=== PATIENT | female | born 1970 ===

== ENCOUNTER 2019-03-24 12:55 | Outpatient (REF) | payer MEDICAID, SELFPAY ==
[2019-03-24 13:28] LABS: Anion Gap 6.1 mmol/L (3-11); BUN 11 mg/dL (7-18); CO2 28.9 mmol/L (21.0-32.0); CREATININE 0.57 mg/dL (0.55-1.02); Calcium 8.5 mg/dL (8.5-10.1); Calculated LDL 104 mg/dL; Chloride 104 mmol/L (98-107); Cholesterol 162 mg/dL (50-200); Glucose 100 mg/dL (70-100); HDL Cholesterol 44 mg/dL (40-60); Potassium 3.9 mmol/L (3.5-5.1); Sodium 139 mmol/L (136-145); Triglyceride 74 mg/dL (30-150)
== END 2019-03-24 13:15 ==
LOC: NCHCN 12:55
PROVIDERS: PCP Nurse Practitioner Family; Visit Provider Nurse Practitioner Family
DX: I10 Essential (primary) hypertension (principal)
CPT/HCPCS: 80048; 80061

== ENCOUNTER 2019-04-18 17:29 | Emergency (ER) | payer OTHER, SELFPAY ==
[2019-04-18 17:20] VITALS: BP 171/51; PULSE 103; RESP 18; TEMP 36.6; O2SAT 99
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
--- NOTE | 2019-04-18 18:30 | DI.RAD_ITS ---
EXAM: XR HAND RT COMPLETE CLINICAL HISTORY: fall, proximal palmar pain. TECHNIQUE: 2D digital imaging was performed. COMPARISON: No exams were available for comparison FINDINGS: BONES: No acute fracture is present. No bony destructive lesion is seen. JOINTS: No dislocation present. SOFT TISSUE: Mild soft tissue swelling is present. IMPRESSION: No acute fracture or dislocation.
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
[2019-04-18] MEDS: Acetaminophen 500 MG TAB 1000 MG PO (19:05)
== END 2019-04-18 19:35 | disposition home or self-care (01) ==
PROVIDERS: Emergency Provider Nurse Practitioner Family; PCP Nurse Practitioner Family
DX: M79.641 Pain in right hand (principal)
CPT/HCPCS: 29125; 99283; 73130; 99282; L3908

== ENCOUNTER 2021-12-07 11:23 | Emergency (ER) | payer MEDICAID, SELFPAY ==
[2021-12-07 11:31] VITALS: BP 191/92; PULSE 100; RESP 16; TEMP 36.2; O2SAT 100
--- NOTE | 2021-12-07 11:45 | RT.EKG_ITS ---
APPROVED REPORT Exam: Resting ECG Reason for Exam: Midepigastric pain Patient Location: E HR:95 bpm ECG Measurements Heart Rate 95 AXIS IL 206 P 57 QRSd 87 QRS 26 QT 357 T 44 QTc 450 Conclusion Sinus rhythm...normal P axis Prolonged IL interval...IL >205 Left atrial enlargement Anteroseptal Q >35mS, T neg, V1-V2
--- NOTE | 2021-12-07 11:55 | ED.GENADUL_ITS ---
Discharge Plan Disposition Patient Disposition: HOME Condition: Stable Discharge Details Clinical Impression: High blood pressure Primary Care Provider: Olga Burton ED Provider: Cindy Rojas Home Meds and New Rx's Prescriptions: New lisinopril 10 mg tablet 10 mg PO DAILY Qty: 30 0RF Rx Instructions: Take one tablet daily No Action multivitamin Tablet 1 tab PO DAILY Discharge Instructions Instructions: Hypertension (ED) Additional Instructions: Take your blood pressure medication once daily as prescribed. Follow up with primary care provider in 3-5 days. Return to ED sooner if any worsening or concerns. Increase oral fluids. Please take Tylenol or Ibuprofen with food every 4-6 hours as needed for pain and swelling. Stand Alone Forms: Work Release Referrals: Olga Burton [Primary Care Provider] - 3 days Discharge Data Discharge Date/Time-TO BE ENTERED AT DEPARTURE: 12/07/21 14:16 Medical Decision Making 51-year-old female presents to the ER with chief complaint of high blood pressure and blurry vision which she noticed yesterday. She also reports some midepigastric abdominal discomfort which she attributes to gas. She denies any headache no numbness tingling or weakness on one side of her body or the other. Cardiac work-up ordered including EKG EKG was reviewed by Dr. Mark Bah ER attending, no old EKG available for review please see his official ultrasound. CBC within normal limits, urinalysis shows trace blood micro within normal limits. Initial troponin within normal limits, sodium 134 potassium 3.1, glucose 126 magnesium 2.5 1315: Patient reevaluation, she reports continued blurry vision. Blood pressure has improved somewhat at 167/73, will give 10 mg lisinopril here and 40 mEq of potassium. BP has improved to 158/89. She feels much better. Plan is to discharge with prescription for lisinopril and close follow-up with PCP. This text was generated using frentingation system, please disregard any oddities of phrase or misspellings. Medical Records Medical records reviewed: Yes I reviewed the patient's medical records. Lab Data Lab results reviewed: Yes I reviewed the patient's lab results. Labs: Laboratory Tests Range/Units 12/07/21 12/07/21 12/07/21 12:03 12:03 12:03 WBC (4.4-10.8) 10^3/uL 8.28 RBC (3.93-5.22) 10^6/uL 4.82 Hgb (11.2-15.7) g/dL 13.6 Hct (36.0-46.0) % 42.2 MCV (80-95) fL 88 MCH (27.0-33.0) pg 28.2 MCHC (32.0-36.0) % 32.2 RDW (11.7-14.6) % 12.5 Plt Count (130-400) 10^3/uL 329 MPV (8.0-11.0) fL 9.3 Immature Gran % 0.2 Neutrophils % 62.4 Lymphocytes % 27.3 Monocytes % 6.0 Eosinophils % 3.5 Basophils % 0.6 Nucleated RBC % (0.0-0.3) % 0.0 Absolute Neutrophils (1.2-6.7) 10^3/uL 5.16 Absolute Lymphocytes (1.2-3.4) 10^3/uL 2.26 Absolute Monocytes (0.1-0.8) 10^3/uL 0.50 Absolute Eosinophils (0.0-0.7) 10^3/uL 0.29 Absolute Basophils (0.0-0.2) 10^3/uL 0.05 Sodium (136-145) mmol/L 134 L Potassium (3.5-5.1) mmol/L 3.1 L Chloride (98-107) mmol/L 100 Carbon Dioxide (21.0-32.0) mmol/L 26.7 Anion Gap (3-11) mmol/L 7.3 BUN (7-18) mg/dL 15 Creatinine (0.55-1.02) mg/dL 0.8 Estimated GFR/1.73 m2 (mL/min/1.73m2) >= 60.00 Glucose (74-106) mg/dL 126 H Calcium (8.5-10.1) mg/dL 8.7 Magnesium (1.8-2.4) mg/dL 2.5 H Total Bilirubin (0.2-1.0) mg/dL 0.3 AST (15-37) U/L 21 ALT (14-59) U/L 28 Alkaline Phosphatase (46-116) U/L 101 Troponin I (<or=60) ng/L < 50 Total Protein (6.4-8.2) g/dL 8.4 H Albumin (3.4-5.0) g/dL 3.8 Lipase (73-393) U/L 231 Urine Color (Yellow) Yellow Urine Clarity (Clear) Clear Urine pH (5-8) 7.0 Ur Specific [place] (1.005-1.025) 1.015 Urine Protein (Negative) mg/dL Negative Urine Ketones (Negative) mg/dL Negative Urine Blood (Negative) Trace-intact H Urine Nitrite (Negative) Negative Urine Bilirubin (Negative) Negative Urine Urobilinogen (Up TO 0.2) EU/dL 0.2 Ur Leukocyte Esterase (Negative) Negative Urine RBC (0-2) HPF 0-2 Urine WBC (0-5) HPF 0-2 Ur Epithelial Cells (Negative) HPF Few Urine Crystals (Negative) HPF Negative Urine Bacteria (Negative) HPF Negative Urine Casts (Negative) LPF Negative Urine Mucus (Negative) Negative Ur Culture Indicated? No Urine Glucose (Negative) mg/dL Negative Range/Units 12/07/21 14:49 WBC (4.4-10.8) 10^3/uL RBC (3.93-5.22) 10^6/uL Hgb (11.2-15.7) g/dL Hct (36.0-46.0) % MCV (80-95) fL MCH (27.0-33.0) pg MCHC (32.0-36.0) % RDW (11.7-14.6) % Plt Count (130-400) 10^3/uL MPV (8.0-11.0) fL Immature Gran % Neutrophils % Lymphocytes % Monocytes % Eosinophils % Basophils % Nucleated RBC % (0.0-0.3) % Absolute Neutrophils (1.2-6.7) 10^3/uL Absolute Lymphocytes (1.2-3.4) 10^3/uL Absolute Monocytes (0.1-0.8) 10^3/uL Absolute Eosinophils (0.0-0.7) 10^3/uL Absolute Basophils (0.0-0.2) 10^3/uL Sodium (136-145) mmol/L Potassium (3.5-5.1) mmol/L Chloride (98-107) mmol/L Carbon Dioxide (21.0-32.0) mmol/L Anion Gap (3-11) mmol/L BUN (7-18) mg/dL Creatinine (0.55-1.02) mg/dL Estimated GFR/1.73 m2 (mL/min/1.73m2) Glucose (74-106) mg/dL Calcium (8.5-10.1) mg/dL Magnesium (1.8-2.4) mg/dL Total Bilirubin (0.2-1.0) mg/dL AST (15-37) U/L ALT (14-59) U/L Alkaline Phosphatase (46-116) U/L Troponin I (<or=60) ng/L Cancelled Total Protein (6.4-8.2) g/dL Albumin (3.4-5.0) g/dL Lipase (73-393) U/L Urine Color (Yellow) Urine Clarity (Clear) Urine pH (5-8) Ur Specific [place] (1.005-1.025) Urine Protein (Negative) mg/dL Urine Ketones (Negative) mg/dL Urine Blood (Negative) Urine Nitrite (Negative) Urine Bilirubin (Negative) Urine Urobilinogen (Up TO 0.2) EU/dL Ur Leukocyte Esterase (Negative) Urine RBC (0-2) HPF Urine WBC (0-5) HPF Ur Epithelial Cells (Negative) HPF Urine Crystals (Negative) HPF Urine Bacteria (Negative) HPF Urine Casts (Negative) LPF Urine Mucus (Negative) Ur Culture Indicated? Urine Glucose (Negative) mg/dL HPI General Mode of arrival: ambulatory . Date/Time Provider Initiated Documentation: 12/07/21 11:24 . Limitations to Documentation: no limitations . Information obtained by: patient, RN notes reviewed and old records reviewed . HPI Narrative: 51-year-old female presents to the ER with chief complaint of high blood pressure and blurry vision which she noticed yesterday. She also reports some midepigastric abdominal discomfort which she attributes to gas. She denies any headache no numbness tingling or weakness on one side of her body or the other. Denies any nausea vomiting diarrhea. She reports that she has not been on any blood pressure medication for the last 3 to 4 years. She states that she was on blood pressure medication which she cannot remember the name. Related Data Home Medications Medication Instructions Recorded Confirmed multivitamin 1 tab PO DAILY 09/29/19 05/20/22 lisinopril 10 mg tablet 10 mg PO DAILY #30 tabs 12/07/21 Previous Rx's Medication Instructions Recorded lisinopril 10 mg tablet 10 mg PO DAILY #30 tabs 12/07/21 Allergies Allergy/AdvReac Type Severity Reaction Status Date / Time No Known Allergies Allergy Unverified 12/07/21 11:40 General Stated Complaint: GenMedical HANNA: 3 Review of Systems All systems reviewed & are unremarkable except as noted in HPI and below Constitutional Constitutional: Denies headache(s) ENT Ears, Nose, Mouth, and Throat: Denies headache(s) Musculoskeletal Musculoskeletal: Denies numbness Neurologic Neurologic: Denies headache(s), Denies numbness and Reports other visual disturbances PFSH All Active Problems (Updated 12/07/21 @ 13:03 by Cindy Rojas) High blood pressure (Chronic) Social History Smoking/Tobacco Use Status: Never Smoking risk assessment performed?: Yes Alcohol Intake: never Substance use type: does not use Do you feel safe at home: Yes Do you feel safe in your relationship?: Yes Exam Narrative Exam Narrative: Constitutional: Alert and oriented x3. Appears stated age. Normal body habitus. Head: Normocephalic, no trauma. Eyes: Pupils PERRL, Red reflex noted, EOM's intact. Eyelids symmetrical without lesions, discharge, or swelling. ENT: Bilateral TM's WNL, External ear normal to inspection, no mastoid TTP, swelling, or erythema, Nasal turbinates WNL, no nasal discharge. Normal dentition, Posterior pharynx WNL, no exudate. Chest: RRR, Normal S1, S2, distal pulses intact. Blood pressure is 191/92 slightly tachycardic 100s. Resp: Lungs clear to auscultation bilaterally, no wheezes, rales, or rhonchi. Abdomen: Soft, non-distended, Normoactive bowel sounds all 4 quads. Musculoskeletal: Normal gait, 5/5 strength to all four extremities. Skin: No suspicious rashes or lesions. Capillary refill less than 2 sec. Neurologic: Cranial nerves II-XII intact. Alert and oriented x 3. Motor: No deficits noted. Sensory: Intact bilaterally all 4 extremities. Reflexes: DTR's intact bilaterally.. Hematologic/Lymphatic: No ecchymosis, no lymphadenopathy. Course Vital Signs Vital signs: Vital Signs Temperature 36.2 C L 12/07/21 11:31 Pulse 100 H 12/07/21 11:31 Respiratory Rate 16 12/07/21 11:31 Blood Pressure 191/92 H 12/07/21 11:31 Pulse Oximetry 100 12/07/21 11:31 Temperature 36.2 C L 12/07/21 11:31 Temperature Source Temporal Artery Scan 12/07/21 11:31 Pulse 100 H 12/07/21 11:31 Respiratory Rate 16 12/07/21 11:31 Respiratory Effort 12/07/21 11:50 Respiratory Depth Normal 12/07/21 11:50 Respiratory Pattern Normal 12/07/21 11:50 Blood Pressure 191/92 H 12/07/21 11:31 Blood Pressure Position Sitting 12/07/21 11:31 Pulse Oximetry 100 12/07/21 11:31 Oxygen Delivery Method Room Air 12/07/21 11:31 Oxygen Flow Rate 0 12/07/21 11:31 Pain Level 2 12/07/21 11:31
[2021-12-07 12:16] LABS: Abs Immature Grans 0.02 10^3/uL (0.0-0.06); Absolute Basophil Count 0.05 10^3/uL (0.0-0.2); Absolute Eosinophil Count 0.29 10^3/uL (0.0-0.7); Absolute Lymphocyte Count 2.26 10^3/uL (1.2-3.4); Absolute Neutrophil Count 5.16 10^3/uL (1.2-6.7); Basophils % 0.6; Eosinophils % 3.5; HCT 42.2 % (36.0-46.0); HGB 13.6 g/dL (11.2-15.7); Immature Grans % 0.2; Lymphocytes % 27.3; MCH 28.2 pg (27.0-33.0); MCHC 32.2 % (32.0-36.0); MCV 88 fL (80-95); MPV 9.3 fL (8.0-11.0); Neutrophils % 62.4; Platelet Count 329 10^3/uL (130-400); RBC 4.82 10^6/uL (3.93-5.22); RDW 12.5 % (11.7-14.6); WBC 8.28 10^3/uL (4.4-10.8)
[2021-12-07 12:19] VITALS: BP 167/73; PULSE 91; RESP 18; O2SAT 99
[2021-12-07 12:20] LABS: Bilirubin Negative (Negative); Blood Trace-intact (Negative); Clarity Clear (Clear); Glucose Negative (Negative); Ketones Negative (Negative); Leukocyte Esterase Negative (Negative); Nitrite Negative (Negative); Specific Gravity 1.015 (1.005-1.025); Urobilinogen 0.2 EU/dL (Up TO 0.2)
[2021-12-07 12:23] LABS: Bacteria Negative HPF (Negative); C & S Indicated? No; Casts Negative LPF (Negative); Crystals Negative HPF (Negative); Epithelial Cells Few HPF (Negative); Mucus Negative (Negative); RBC 0-2 HPF (0-2); WBC 0-2 HPF (0-5)
[2021-12-07 12:52] LABS: ALT 28 U/L (14-59); AST 21 U/L (15-37); Albumin 3.8 g/dL (3.4-5.0); Alkaline Phosphatase 101 U/L (46-116); Anion Gap 7.3 mmol/L (3-11); BUN 15 mg/dL (7-18); Bilirubin, Total 0.3 mg/dL (0.2-1.0); CO2 26.7 mmol/L (21.0-32.0); CREATININE 0.8 mg/dL (0.55-1.02); Calcium 8.7 mg/dL (8.5-10.1); Chloride 100 mmol/L (98-107); Glucose 126 mg/dL (74-106); Lipase 231 U/L (73-393); Magnesium 2.5 mg/dL (1.8-2.4); Potassium 3.1 mmol/L (3.5-5.1); Sodium 134 mmol/L (136-145); Total Protein 8.4 g/dL (6.4-8.2); Troponin I < 50 ng/L (<or=60)
[2021-12-07] MEDS: Lisinopril 10 MG TAB PO (13:18)
[2021-12-07] MEDS: Potassium Chloride 20 MEQ TABCR 40 MEQ PO (13:18)
[2021-12-07] MEDS: Normal Saline 500 ML IV (13:27)
[2021-12-07 13:43] VITALS: BP 158/89; PULSE 91; RESP 19; O2SAT 100
[2021-12-07 14:15] VITALS: PULSE 88; RESP 18; O2SAT 99
== END 2021-12-07 14:16 | disposition home or self-care (01) ==
PROVIDERS: Emergency Provider Registered Nurse Emergency; PCP Nurse Practitioner Family
DX: I10 Essential (primary) hypertension (principal); R10.13 Epigastric pain
CPT/HCPCS: 80053; 83690; 93005; 96360; 99284; 81003; 81015; 83735; 84484; 85025; 93010; 99283

== ENCOUNTER 2021-12-13 10:53 | Outpatient (REF) | payer MEDICAID, SELFPAY ==
[2021-12-13 15:43] LABS: TSH (W/Ref FT4) 1.31 uIU/mL (0.36-3.74)
== END 2021-12-13 10:54 | disposition home or self-care (01) ==
LOC: NCHCN 10:53
PROVIDERS: PCP Nurse Practitioner Family; Visit Provider Nurse Practitioner Family
DX: E04.1 Nontoxic single thyroid nodule (principal)
CPT/HCPCS: 84443

== ENCOUNTER 2022-04-12 14:52 | Outpatient (REF) | payer MEDICAID, SELFPAY ==
--- NOTE | 2022-04-12 13:35 | PAPFT_PTH ---
PATIENT: Liz Ponce LOC: [facility]#:[id number] AGE/SX: 51/F ROOM: RE04/12/[address]: Olga Burton : 1970 BED: DIS: 04/12/2022 SPEC #: [id number] RECD: 04/12/22 18:36 STATUS: ARNULFO REReymundo #: [id number] MICA: 04/12/22 13:[address]: Olga Burton DEPT: [facility] Cytology RECD BY: Padmaja Mae Tissues: 1 - CX/ENDOCX FOR PAP SMEARS Procedures: PAP THIN PREP/UVM Screening HPV DNA PROBE Comments: [id number]
== END 2022-04-12 14:53 | disposition home or self-care (01) ==
LOC: NCHCN 14:52
PROVIDERS: PCP Nurse Practitioner Family; Visit Provider Nurse Practitioner Family
DX: Z12.4 Encounter for screening for malignant neoplasm of cervix (principal); Z11.51 Encounter for screening for human papillomavirus (HPV)
CPT/HCPCS: 88142; 87624

== ENCOUNTER → 2023-10-24 00:40 | Outpatient (CLI) | payer MEDICAID, SELFPAY ==
--- NOTE | 2023-10-24 10:50 | DI.MAMMO_ITS ---
Exam(s) MAMMO SCREENING EXAM: MAMMO SCREENING CLINICAL HISTORY: SCREENING, Z12.39. TECHNIQUE: Bilateral full field digital CC and MLO mammographic images were obtained with 3D tomosyn thesis and utilizing computer aided detection (CAD). COMPARISON: Prior outside mammograms were reviewed. FINDINGS: There has been no significant change in the appearance and distribution of the fibroglandular tissue. There are no new spiculated masses nor malignant appearing microcalcification groups. There is no significant architectural distortion nor skin thickening-retraction. IMPRESSION: No radiographic evidence of malignancy. BI-RADS Category 1 - Negative Breast Density - Category B - Scattered areas of fibroglandular density Breast density Category C or D implies that the patient has dense breast tissue. Dense breast tissue can make it harder to find cancer on a mammogram. Dense breast tissue is also associated with an incr eased risk of breast cancer. This information about the result of the mammogram report was provided to the patient to raise their awareness. Use this report when you speak with the patient about their risks for breast cancer, which includes their family history. At that time, you may recommend additional screening tests (Ultrasoun d or MRI) as these tests may add significant information. A negative radiographic report should not delay biopsy if a dominant or clinically suspicious mass is present. Up to ten percent of cancers are not identified on mammography. A negative report may reinforce clinical impression. Adenosis and dense breasts may obscure an underlying neoplasm. False positive reports average 6 to 10%. Patient will receive a letter notifying them of these results.
== END ==
PROVIDERS: Visit Provider Nurse Practitioner Family
DX: Z12.31 Encounter for screening mammogram for malignant neoplasm of breast (principal)
CPT/HCPCS: 77063; 77067

== ENCOUNTER 2023-11-14 15:20 | Outpatient (REF) | payer MEDICAID, SELFPAY ==
[2023-11-14 19:43] LABS: Abs Immature Grans 0.02 10^3/uL (0.0-0.06); Absolute Basophil Count 0.07 10^3/uL (0.0-0.2); Absolute Eosinophil Count 0.33 10^3/uL (0.0-0.7); Absolute Lymphocyte Count 1.61 10^3/uL (1.2-3.4); Absolute Monocyte Count 0.43 10^3/uL (0.1-0.8); Absolute Neutrophil Count 3.84 10^3/uL (1.2-6.7); Basophils % 1.1; Eosinophils % 5.2; HCT 39.4 % (36.0-46.0); HGB 12.5 g/dL (11.2-15.7); Immature Grans % 0.3; Lymphocytes % 25.6; MCH 27.1 pg (27.0-33.0); MCHC 31.7 % (32.0-36.0); MCV 86 fL (80-95); MPV 9.3 fL (8.0-11.0); Monocytes % 6.8; Platelet Count 339 10^3/uL (130-400); RBC 4.61 10^6/uL (3.93-5.22); RDW 13.2 % (11.7-14.6); RDW-SD 40.7 fL
[2023-11-14 20:26] LABS: ALT 61 U/L (14-59); AST 30 U/L (15-37); Albumin 3.5 g/dL (3.4-5.0); Alkaline Phosphatase 111 U/L (46-116); Anion Gap 9.5 mmol/L (3-11); BUN 19 mg/dL (7-18); Bilirubin, Total 0.3 mg/dL (0.2-1.0); CO2 26.5 mmol/L (21.0-32.0); CREATININE 0.9 mg/dL (0.55-1.02); Calcium 8.6 mg/dL (8.5-10.1); Chloride 103 mmol/L (98-107); Glucose 120 mg/dL (74-106); Sodium 139 mmol/L (136-145); TSH 1.48 uIU/Ml (0.36-3.74); Total Protein 7.3 g/dL (6.4-8.2)
[2023-11-14 20:38] LABS: Calculated LDL 116 mg/dL (<100); Cholesterol 214 mg/dL (<200); HDL Cholesterol 65 mg/dL (40-60); Triglyceride 169 mg/dL (<150)
== END 2023-11-14 15:21 | disposition home or self-care (01) ==
LOC: NCHCN 15:20
PROVIDERS: PCP Nurse Practitioner Family; Visit Provider Nurse Practitioner Family
DX: I10 Essential (primary) hypertension (principal); E04.1 Nontoxic single thyroid nodule; F41.8 Other specified anxiety disorders
CPT/HCPCS: 80053; 80061; 84439; 84443; 85025

== ENCOUNTER 2024-11-16 16:27 | Outpatient (REF) | payer MEDICAID, SELFPAY ==
[2024-11-16 16:02] LABS: ALT 57 U/L (14-59); AST 27 U/L (15-37); Alkaline Phosphatase 112 U/L (46-116); Anion Gap 12.8 mmol/L (3-11); BUN 21 mg/dL (7-18); Bilirubin, Total 0.3 mg/dL (0.2-1.0); CO2 26.2 mmol/L (21.0-32.0); CREATININE 0.7 mg/dL (0.55-1.02); Calcium 9.5 mg/dL (8.5-10.1); Chloride 103 mmol/L (98-107); Glucose 117 mg/dL (74-106); Sodium 142 mmol/L (136-145); TSH (W/Ref FT4) 1.98 uIU/mL (0.36-3.74); Total Protein 8.1 g/dL (6.4-8.2)
== END 2024-11-16 16:28 | disposition home or self-care (01) ==
LOC: NCHCN 16:27
PROVIDERS: Visit Provider Nurse Practitioner Family
DX: I10 Essential (primary) hypertension (principal)
CPT/HCPCS: 80053; 84443

== ENCOUNTER 2024-11-18 22:09 | Outpatient (REF) | payer MEDICAID, SELFPAY ==
[2024-11-18 18:25] LABS: COMMENT (LAB VIEW ONLY) 68.68 mg/dL; Microalb ug/mg Crea 9.5 ug/mg Cr
== END 2024-11-18 22:10 | disposition home or self-care (01) ==
LOC: NCHCN 22:09
PROVIDERS: Visit Provider Nurse Practitioner Family
DX: I10 Essential (primary) hypertension (principal)
CPT/HCPCS: 82043; 82570